=== PATIENT | female | born 1950 | race Caucasian/White ===

== ENCOUNTER 2019-11-16 07:55 | Outpatient (CLI) | payer MEDICARE, SELFPAY ==
[2019-11-16 08:33] LABS: Hematocrit 38.9 % (37.0-47.0); Hemoglobin 11.9 g/dL (12.0-15.0); Mean Corpuscular HGB Conc 30.6 g/dl (32-36); Mean Corpuscular Hemoglobin 29.5 pg (26-34); Mean Corpuscular Volume 96.3 fl (80-100); Mean Platelet Volume 11.1 fl (7.4-10.4); Platelet Count Result 259 k/mm3 (150-375); Red Blood Count 4.04 M/mm3 (4.2-5.4); White Blood Count 5.2 K/mm3 (4.5-10.0)
[2019-11-16 08:45] LABS: Alanine Aminotransferase 16 U/L (4-35); Albumin Level 4.1 g/dL (3.5-5.1); Alkaline Phosphatase 100 U/L (38-126); Aspartate Amino Transferase 22 U/L (14-36); Bilirubin,Total 0.2 mg/dL (0.2-1.3); Blood Urea Nitrogen 24 mg/dL (7-17); Calcium 8.6 mg/dL (8.4-10.2); Carbon Dioxide 27 mmol/L (22-30); Chloride 105 mmol/L (98-107); Cholesterol 186 mg/dL (0-200); Estimated Glomerular Filt Rate 55; Glucose 98 mg/dL (65-105); HDL Direct 64 mg/dL; Potassium 4.4 mmol/L (3.4-5.0); Sodium 139 mmol/L (137-145); Triglycerides 173 mg/dL (<150)
[2019-11-16 08:56] LABS: LDL Cholesterol Direct 77 mg/dL
[2019-11-16 10:04] LABS: Vitamin D 25 Hydroxy 22.6 ng/mL
== END 2019-11-16 07:56 | disposition home or self-care (01) ==
PROVIDERS: PCP Family Medicine; Visit Provider Family Medicine
DX: R53.83 Other fatigue (principal); I10 Essential (primary) hypertension; E78.5 Hyperlipidemia, unspecified; E55.9 Vitamin D deficiency, unspecified
CPT/HCPCS: 36415; 80053; 80061; 82306; 84443; 85027

== ENCOUNTER 2019-12-02 00:27 | Day surgery (SDC) | payer MEDICARE, SELFPAY ==
[2019-08-25 14:24] VITALS: BMI 30.9
[2019-11-28 14:00] VITALS: BMI 30.9
[2019-12-02 09:20] VITALS: BP 141/65; PULSE 67; TEMP 37.1; BMI 30.7
[2019-12-02] MEDS: LACTATED RINGERS 1,000 ML 150 ML IV CONT (09:32)
--- NOTE | 2019-12-02 09:53 | PM.HPGS ---
History of Present Illness History of Present Illness Consent: Risks, benefits, and alternatives have been discussed and questions answered. Patient agrees to proceed with procedure. Chief complaint: Epigastric Pain Narrative: Fern Olea is a 69 year old female with recurrent epigastric pain, often related to meals. Ultrasound of the upper abdomen was negative. [facility] Past Medical History Medical History Anxiety Chronic low back pain Chronic neck pain Depression HLD (hyperlipidemia) Hypertension Normal colonoscopy Parkinsons disease Surgical History Surgical History H/O esophagogastroduodenoscopy H/O rotator cuff surgery Previous back surgery Family History Family History Sibling Family history of rheumatoid arthritis Family history of lupus erythematosus Other Carcinoma of colon Diabetes mellitus Family history of arthritis Family history of chronic obstructive pulmonary disease Hypertension Malignant neoplasm of prostate Social History Social History Smoking status: Former smoker Second hand tobacco smoke exposure: No Smoking end date: 07/27/13 Alcohol intake: never Meds Home Medications and Allergies Home Medications Medication Instructions Recorded Confirmed Type atorvastatin 10 mg tablet 10 mg PO DAILY #90 tablet 06/14/19 08/25/19 Rx pregabalin 50 mg capsule 50 mg PO .HS #30 cap 06/29/19 08/25/19 Rx diclofenac sodium 75 mg 75 mg PO BID #180 tablet 07/25/19 08/25/19 Rx tablet,delayed release alprazolam 0.5 mg tablet 0.5 mg PO DAILY 08/04/19 08/25/19 History budesonide 3 mg 9 mg PO DAILY each 08/04/19 08/25/19 History capsule,delayed,extended release carbidopa 25 mg-levodopa 100 mg 2 tablet PO TID tablet 08/04/19 08/25/19 History tablet venlafaxine 75 mg capsule,extended 75 mg PO DAILY 08/04/19 08/25/19 History release 24 hr zonisamide 50 mg capsule 50 mg PO DAILY 08/04/19 08/25/19 History melatonin 2.5 mg PO HS PRN 08/25/19 08/25/19 History primidone 50 mg PO BID 08/25/19 08/25/19 History lisinopril 20 mg tablet See Rx Instructions .ROUTE 10/20/19 11/28/19 Rx .COMPLEX #90 tablet Allergies Allergy/AdvReac Type Severity Reaction Status Date / Time adhesive Allergy Unknown Rash Verified 08/25/19 14:18 nickel Allergy Unknown Rash Verified 08/25/19 14:18 BUTORPHANOL TARTRATE Allergy Intermediate HALLUCINATI Uncoded 08/25/19 14:18 ONS Vital Signs Vital Signs - 24 hr 12/02/19 09:20 Temperature 37.1 C Pulse Rate 67 Blood Pressure 141/65 H Exam Const: General: alert Orientation/consciousness: patient oriented x3 Resp: Auscultation: clear to auscultation bilaterally Cardio: Rhythm: regular rhythm GI: GI Palp: Yes Soft to palpation and No Tenderness to palpation present (GI) Neuro: General: patient oriented x3 Assessment and Plan Assessment and plan (1) Epigastric pain: Code(s): R10.13 - Epigastric pain Status: Acute Assessment and Plan: EGD with possible biopsy or dilatation or cautery.
--- NOTE | 2019-12-02 09:54 | WPDANESEPPF ---
Anes - Initial Pre Proc Eval Procedure: Operation Date: 12/02/19 10:30 Proposed Procedures p Esophagogastroduodenoscopy - Joseph Collins MD Date/Time: 12/02/19 09:54 Surgeon: Joseph Collins MD Pre Op Diagnosis: Epigastric Pain Patient Data Age: 69 Gender: F Height: 5 ft 6 in Weight: 86.2 kg Last Vital Signs Temp 37.1 C 12/02/19 09:20 Pulse 67 12/02/19 09:20 BP 141/65 H 12/02/19 09:20 Allergies Allergy/AdvReac Type Severity Reaction Status Date / Time adhesive Allergy Unknown Rash Verified 08/25/19 14:18 nickel Allergy Unknown Rash Verified 08/25/19 14:18 BUTORPHANOL TARTRATE Allergy Intermediate HALLUCINATI Uncoded 08/25/19 14:18 ONS Home Medications Medication Instructions Recorded Confirmed Type atorvastatin 10 mg tablet 10 mg PO DAILY #90 tablet 06/14/19 08/25/19 Rx pregabalin 50 mg capsule 50 mg PO .HS #30 cap 06/29/19 08/25/19 Rx diclofenac sodium 75 mg 75 mg PO BID #180 tablet 07/25/19 08/25/19 Rx tablet,delayed release alprazolam 0.5 mg tablet 0.5 mg PO DAILY 08/04/19 08/25/19 History budesonide 3 mg 9 mg PO DAILY each 08/04/19 08/25/19 History capsule,delayed,extended release carbidopa 25 mg-levodopa 100 mg 2 tablet PO TID tablet 08/04/19 08/25/19 History tablet venlafaxine 75 mg capsule,extended 75 mg PO DAILY 08/04/19 08/25/19 History release 24 hr zonisamide 50 mg capsule 50 mg PO DAILY 08/04/19 08/25/19 History melatonin 2.5 mg PO HS PRN 08/25/19 08/25/19 History primidone 50 mg PO BID 08/25/19 08/25/19 History lisinopril 20 mg tablet See Rx Instructions .ROUTE 10/20/19 11/28/19 Rx .COMPLEX #90 tablet Patient hx anesthesia problems: none Family hx anesthesia problems: none PMFSH Past Medical History Medical History Anxiety Chronic low back pain Chronic neck pain Depression HLD (hyperlipidemia) Hypertension Normal colonoscopy Parkinsons disease Surgical History Surgical History H/O esophagogastroduodenoscopy H/O rotator cuff surgery Previous back surgery Family History Family History Sibling Family history of rheumatoid arthritis Family history of lupus erythematosus Other Carcinoma of colon Diabetes mellitus Family history of arthritis Family history of chronic obstructive pulmonary disease Hypertension Malignant neoplasm of prostate Social History Social History Smoking status: Former smoker Second hand tobacco smoke exposure: No Smoking end date: 07/27/13 Alcohol intake: never Anes - Eval Final PreProcedure Day of Procedure 12/02/19 09:54 Patient weight: obese Heart: regular rate and rhythm Lungs: clear to auscultation Airway: Mallampati scale class II and other (s/p ACD C3-4-5, good ROM) Neurological: alert and oriented Last oral intake: >/= 8 hours ASA classification: III Emergent: no Anesthetic plan: proceed Anesthesia type and monitoring: general GIVS and standard monitoring Informed Consent: The patient's anesthetic plan and its attendant risks and benefits were discussed with the patient/family/POA. Questions were solicited and answers provided to the satisfaction of the patient/family/POA.
[2019-12-02 10:34] VITALS: BP 117/42; PULSE 57; RESP 16; O2SAT 97
[2019-12-02 10:44] VITALS: BP 117/50; PULSE 53; RESP 19; O2SAT 97
[2019-12-02 10:53] VITALS: BP 125/50; PULSE 53; RESP 12; O2SAT 100
== END 2019-12-02 11:05 | disposition home or self-care (01) ==
PROVIDERS: PCP Family Medicine; Visit Provider Internal Medicine Gastroenterology
PROC: 0DJ08ZZ Inspection of Upper Intestinal Tract, Via Natural or Artificial Opening Endoscopic (ICD-10-PCS; CPT 43235; principal; 2019-12-02 10:30)
DX: K21.9 Gastro-esophageal reflux disease without esophagitis (principal); K29.70 Gastritis, unspecified, without bleeding; K29.80 Duodenitis without bleeding; I10 Essential (primary) hypertension; E78.5 Hyperlipidemia, unspecified; G89.29 Other chronic pain; M54.2 Cervicalgia; M54.9 Dorsalgia, unspecified; G20 Parkinson's disease; F41.9 Anxiety disorder, unspecified; E66.9 Obesity, unspecified; Z68.30 Body mass index [BMI] 30.0-30.9, adult
CPT/HCPCS: 43239; 87081; 88305; J2704; J7120

== ENCOUNTER 2020-01-09 20:43 | Outpatient (CLI) | payer MEDICARE, SELFPAY ==
--- NOTE | ~2020-01-09 | MR_ITS ---
EXAMINATION: MR thoracic spine wo con DATE: 01/09/2020 21:23 INDICATION: Thoracic radiculopathy. TECHNIQUE: Magnetic resonance imaging (MRI) of the thoracic spine was performed without intravenous c ontrast. Sagittal localizer T1-weighted FSE of the cervical spine was obtained. Thoracic spine sequen [place] included sagittal T2-weighted FSE, sagittal T1-weighted FSE, sagittal T2-weighted FS FSE, and axi al T2-weighted FSE. COMPARISON: Chest CT 02/14/2019, 12/08/2017 FINDINGS: There is 9 degrees dextrocurvature of thoracic spine. There are changes of anterior fusion procedure from C4 to C6. There are Schmorl's nodes at multiple levels. There is a sclerotic lesion in T8 vertebral body and left pedicle. There is mildly decreased disc height from T4-T5 through T6-T7, moderately decreased disc height at T7-T8, and mildly decreased disc height at T8-T9 and T9-T10. At T 6-T7, there is a central extrusion with mild central canal stenosis and ventral indentation of spinal cord. At T7-T8, there is a left central protrusion with mild central canal stenosis. At T8-T9, there is a left central extrusion with mild central canal stenosis. At T9-T10, there is a central protrusi on with mild central canal stenosis. There is multilevel facet joint osteoarthritis, mild at most lev els. There is severe facet joint osteoarthritis on the right at T9-T10 and on the left at T11-T12. On the right, there is mild neural foraminal stenosis at T9-T10 and T10-T11. On the left, there is mild neural foraminal stenosis at T10-T11 and T11-T12. The spinal cord signal intensity is normal. IMPRESSION: 1. Moderate thoracic spondylosis. 2. Sclerotic lesion in T8, stable from 12/08/2017, likely benign. Reviewed, dictated and finalized at location A.
== END 2020-01-09 20:44 | disposition home or self-care (01) ==
PROVIDERS: PCP Family Medicine; Visit Provider Physical Medicine & Rehabilitation Pain Medicine
DX: M47.814 Spondylosis without myelopathy or radiculopathy, thoracic region (principal); M89.9 Disorder of bone, unspecified
CPT/HCPCS: 72146

== ENCOUNTER 2020-09-17 07:43 | Outpatient (CLI) | payer MEDICARE, SELFPAY ==
[2020-09-17 08:03] LABS: Hematocrit 36.5 % (37.0-47.0); Hemoglobin 11.1 g/dL (12.0-15.0); Mean Corpuscular HGB Conc 30.4 g/dl (32-36); Mean Corpuscular Hemoglobin 28.9 pg (26-34); Mean Corpuscular Volume 95.1 fl (80-100); Mean Platelet Volume 11.5 fl (7.4-10.4); Platelet Count Result 234 k/mm3 (150-375); Red Blood Count 3.84 M/mm3 (4.2-5.4); Red Cell Distribution Width 14.1 % (11.5-14.5); White Blood Count 5.6 K/mm3 (4.5-10.0)
[2020-09-17 08:08] LABS: Hemoglobin A1C 5.2 % (<5.7)
[2020-09-17 08:17] LABS: Alanine Aminotransferase 13 U/L (4-35); Alkaline Phosphatase 100 U/L (38-126); Anion Gap 2 mmol/L (8-16); Aspartate Amino Transferase 23 U/L (14-36); Bilirubin,Total 0.2 mg/dL (0.2-1.3); Blood Urea Nitrogen 26 mg/dL (7-17); Calcium 8.6 mg/dL (8.4-10.2); Carbon Dioxide 29 mmol/L (22-30); Chloride 107 mmol/L (98-107); Cholesterol 190 mg/dL (0-200); Estimated Glomerular Filt Rate > 60; Glucose 98 mg/dL (65-105); HDL Direct 79 mg/dL; Potassium 4.4 mmol/L (3.4-5.0); Sodium 138 mmol/L (137-145); Triglycerides 158 mg/dL (<150)
[2020-09-17 08:28] LABS: LDL Cholesterol Direct 69 mg/dL
[2020-09-17 08:49] LABS: Vitamin D 25 Hydroxy 19.9 ng/mL
== END 2020-09-17 07:44 | disposition home or self-care (01) ==
PROVIDERS: PCP Family Medicine; Visit Provider Family Medicine
DX: E78.2 Mixed hyperlipidemia (principal); E11.9 Type 2 diabetes mellitus without complications; E55.9 Vitamin D deficiency, unspecified; R53.83 Other fatigue; I10 Essential (primary) hypertension
CPT/HCPCS: 36415; 80053; 80061; 82306; 83036; 84443; 85027

== ENCOUNTER 2020-11-12 15:04 | Outpatient (CLI) | payer MEDICARE, SELFPAY ==
--- NOTE | ~2020-11-12 | MR_ITS ---
EXAMINATION: MR shoulder LT wo con DATE: 11/12/2020 16:00 INDICATION: Left shoulder pain TECHNIQUE: Magnetic resonance imaging (MRI) of the left shoulder was performed without intravenous co ntrast. Sequences included axial PD-weighted FS FSE, coronal oblique PD-weighted FS FSE, coronal obli que T2-weighted FS FSE, sagittal PD-weighted FS FSE, and sagittal T1-weighted SE. COMPARISON: Shoulder radiographs dated 10/25/2020 FINDINGS: Coracoacromial arch: The acromion undersurface is minimally curved in morphology (type I-II). Small anterior subacromial s pur at the acromial attachment of the normal coracoacromial ligament. Mild acromioclavicular osteoart hritis. Rotator cuff: Mild supraspinatus and infraspinatus tendinopathy without discrete tear. The teres minor and subscapu nuno tendons are normal. Normal rotator cuff muscle bulk and signal. Biceps tendon, glenoid labrum and glenohumeral cartilage: Long head of the biceps tendon is normal. Mild to moderate nonuniform joint space narrowing with diff use partial thickness cartilage loss in places appearing to involve greater than 50% of the cartilage thickness but with smooth chondral surface and without degenerative subchondral changes. Small jamari nal osteophytes are seen along the posterior and inferior glenoid. The glenoid labrum appears small c onsistent with likely chronic degeneration but without a discrete labral tear. Fluid: Physiologic amount of fluid in the glenohumeral joint and biceps tendon sheath. No loose osteochondra l bodies. Small amount of fluid in the subacromial/subdeltoid bursa consistent with mild bursitis. Bones: Normal marrow signal with no edema, fracture or pathologic marrow replacing process. IMPRESSION: 1. Mild to moderate glenohumeral osteoarthritis with diffuse low to moderate grade chondromalacia and likely chronic degeneration of the glenoid labrum which appears small but without a discrete well-de fined labral tear. 2. Mild supraspinatus and infraspinatus tendinopathy without discrete tear. 3. Mild acromioclavicular osteoarthritis. 4. Mild subacromial/subdeltoid bursitis. Reviewed, dictated and finalized at location A. IMPRESSION: 1. Mild to moderate glenohumeral osteoarthritis with diffuse low to moderate gr zaria chondromalacia and likely chronic degeneration of the glenoid labrum which appears small but without a discrete well-defined labral tear. 2. Mild supraspinatus and infraspinatus tendinopathy without discrete tear. 3. Mild acromioclavicular osteoarthritis. 4. Mild subacromial/subdeltoid bursitis.
== END 2020-11-12 15:05 | disposition home or self-care (01) ==
PROVIDERS: PCP Family Medicine; Visit Provider Orthopaedic Surgery
DX: M19.012 Primary osteoarthritis, left shoulder (principal); M75.52 Bursitis of left shoulder
CPT/HCPCS: 73221

== ENCOUNTER 2020-11-27 10:58 | Outpatient (CLI) | payer MEDICARE, SELFPAY ==
[2020-11-27 11:32] LABS: Hematocrit 40.5 % (37.0-47.0); Hemoglobin 12.4 g/dL (12.0-15.0); Immature Reticulocyte Fraction 9.2 % (3.0-15.9); Mean Corpuscular HGB Conc 30.6 g/dl (32-36); Mean Corpuscular Hemoglobin 28.4 pg (26-34); Mean Corpuscular Volume 92.9 fl (80-100); Mean Platelet Volume 11.5 fl (7.4-10.4); Platelet Count Result 267 k/mm3 (150-375); Red Blood Count 4.36 M/mm3 (4.2-5.4); Red Cell Distribution Width 15.6 % (11.5-14.5); Reticulocyte Hemoglobin Conten 34.1 pg (28.2-35.7); Reticulocyte Percent 1.76 % (0.7-4.3); Reticulocytes Absolute 0.08 B/L (32.2-175.7); White Blood Count 8.2 K/mm3 (4.5-10.0)
[2020-11-27 12:10] LABS: Iron 70 ug/dL (37-170)
[2020-11-27 12:19] LABS: Percent Iron Saturation 22 % (20-50)
[2020-11-27 12:26] LABS: Vitamin D 25 Hydroxy 19.1 ng/mL
[2020-11-27 13:40] LABS: Folic Acid > 20.0 ng/mL (2.76->20)
[2020-11-27 13:59] LABS: Hepatitis C Virus Antibody Negative (Negative)
== END 2020-11-27 10:59 | disposition home or self-care (01) ==
PROVIDERS: PCP Family Medicine; Visit Provider Family Medicine
DX: Z11.59 Encounter for screening for other viral diseases (principal); E55.9 Vitamin D deficiency, unspecified; D64.9 Anemia, unspecified
CPT/HCPCS: 36415; 82306; 82607; 82728; 82746; 83540; 83550; 85027; 85046; 86803

== ENCOUNTER 2021-03-15 08:37 | Outpatient (CLI) | payer MEDICARE, SELFPAY ==
[2021-03-15 09:11] LABS: Hematocrit 39.7 % (37.0-47.0); Hemoglobin 12.4 g/dL (12.0-15.0); Mean Corpuscular HGB Conc 31.2 g/dl (32-36); Mean Corpuscular Hemoglobin 29.9 pg (26-34); Mean Corpuscular Volume 95.7 fl (80-100); Platelet Count Result 230 k/mm3 (150-375); Red Blood Count 4.15 M/mm3 (4.2-5.4); Red Cell Distribution Width 14.4 % (11.5-14.5); White Blood Count 5.9 K/mm3 (4.5-10.0)
[2021-03-15 09:24] LABS: Hemoglobin A1C 5.9 % (<5.7)
[2021-03-15 09:26] LABS: Alanine Aminotransferase 7 U/L (4-35); Albumin Level 4.2 g/dL (3.5-5.1); Alkaline Phosphatase 98 U/L (38-126); Anion Gap 8 mmol/L (8-16); Aspartate Amino Transferase 18 U/L (14-36); Bilirubin,Total 0.3 mg/dL (0.2-1.3); Blood Urea Nitrogen 24 mg/dL (7-17); Calcium 8.7 mg/dL (8.4-10.2); Carbon Dioxide 22 mmol/L (22-30); Chloride 108 mmol/L (98-107); Cholesterol 201 mg/dL (0-200); Estimated Glomerular Filt Rate > 60; Glucose 111 mg/dL (65-110); HDL Direct 83 mg/dL; Potassium 4.6 mmol/L (3.4-5.0); Sodium 138 mmol/L (137-145); Triglycerides 170 mg/dL (<150)
[2021-03-15 09:37] LABS: LDL Cholesterol Direct 69 mg/dL
[2021-03-15 09:41] LABS: Vitamin D 25 Hydroxy 44.6 ng/mL
== END 2021-03-15 08:38 | disposition home or self-care (01) ==
LOC: ANHLAB 08:41
PROVIDERS: Visit Provider Family Medicine
DX: E78.2 Mixed hyperlipidemia (principal); R53.83 Other fatigue; E11.9 Type 2 diabetes mellitus without complications; I10 Essential (primary) hypertension; E55.9 Vitamin D deficiency, unspecified
CPT/HCPCS: 36415; 80053; 80061; 82306; 83036; 84443; 85027

== ENCOUNTER 2021-03-25 15:20 | Outpatient (CLI) | payer MEDICARE, SELFPAY ==
--- NOTE | ~2021-03-25 | CT_ITS ---
EXAMINATION:CT lung screening DATE: 03/25/2021 15:38 INDICATION: Personal history of tobacco dependence. Smoker who quit 5 years ago with 40 pack year his tory. TECHNIQUE: Computed tomography (CT) of the chest was performed without intravenous contrast. Automate d exposure control and iterative reconstruction technique were employed. The dose-length product (DLP ) was 130.52 mGy-cm. COMPARISON: Chest CT 02/14/2019 FINDINGS: Calcified bilateral lung nodules and calcified left hilar and mediastinal lymph nodes are c onsistent with old granulomatous disease. There is mild emphysema. There is mild scarring at the lung apices. There are a few scattered nodules in the lungs measuring up to 3 mm. No pleural effusion. Th e heart size is normal. There are coronary artery calcifications. No pericardial effusion. There is a small sliding hiatal hernia. There are cysts in the liver measuring up to 18 mm. Calcifications in t he spleen are consistent with old granulomatous disease. There is moderate thoracic spondylosis. Ther e are changes of anterior fusion procedure in cervical spine. There is chronic sclerosis in T8 verteb ral body and left pedicle, likely benign. IMPRESSION: 1. Lung-RADS category 2: Benign appearance or behavior. Continue annual screening with noncontrast lo w-dose chest CT in 12 months. Reviewed, dictated and finalized at location A. IMPRESSION: 1. Lung-RADS category 2: Benign appearance or behavior. Continue annual screeni ng with noncontrast low-dose chest CT in 12 months.
== END 2021-03-25 15:21 | disposition home or self-care (01) ==
LOC: ANHIMG 15:25
PROVIDERS: PCP Family Medicine; Visit Provider Family Medicine
DX: Z12.2 Encounter for screening for malignant neoplasm of respiratory organs (principal); Z87.891 Personal history of nicotine dependence
CPT/HCPCS: 71271

== ENCOUNTER 2021-04-17 07:06 | Outpatient (CLI) | payer MEDICARE, SELFPAY ==
--- NOTE | ~2021-04-17 | CT_ITS ---
EXAMINATION: CT abdomen pelvis w con DATE: 04/17/2021 08:43 INDICATION: Abdominal pain TECHNIQUE: Computed tomography (CT) of the abdomen and pelvis was performed with 100 cc Omnipaque 350 intravenous contrast. The dose-length product was 828.24 mGy-cm. Automated exposure control and iter ative reconstruction technique were employed. COMPARISON: CT dated 07/18/2019 FINDINGS: Lung bases are unremarkable. Borderline heart size. No significant pleural or pericardial e ffusion. Mild diffuse atherosclerosis. No aneurysm. No lymphadenopathy. There are multiple liver cysts without significant change. The spleen contains calcified granulomas. The pancreas, right adrenal gland and right kidney are unremarkable. There is a small subcentimeter l eft adrenal myelolipoma. There are left renal cysts. Gallbladder is present. Nonobstructive bowel gas pattern. Colonic diverticula without evidence for diverticulitis. Moderate lumbar spondylosis. Mild levoscoliosis. No focal lytic or blastic lesions. No significant hydronephrosis. Bladder is decompres sed. No abnormal pelvic masses or fluid collections. No free air or free fluid. IMPRESSION: 1. No acute abdominal abnormality. Reviewed, dictated and finalized at location A.
[2021-04-17 08:35] LABS: Estimated Glomerular Filt Rate > 60
== END 2021-04-17 07:07 | disposition home or self-care (01) ==
LOC: ANHIMG 07:08
PROVIDERS: PCP Family Medicine; Visit Provider Internal Medicine Gastroenterology
DX: R10.9 Unspecified abdominal pain (principal)
CPT/HCPCS: 74177; Q9967

== ENCOUNTER → 2021-10-03 17:22 | Outpatient (CLI) | payer MEDICARE, SELFPAY ==
--- NOTE | ~2021-10-03 | MR_ITS ---
EXAMINATION: MR shoulder LT wo con DATE: 10/03/2021 17:57 INDICATION: Left shoulder pain TECHNIQUE: Magnetic resonance imaging (MRI) of the left shoulder was performed without intravenous co ntrast. Sequences included axial PD-weighted FS FSE, coronal oblique PD-weighted FS FSE, coronal obli que T2-weighted FS FSE, sagittal PD-weighted FS FSE, and sagittal T1-weighted SE. COMPARISON: 11/12/2020 FINDINGS: Coracoacromial arch: The acromion undersurface is minimally curved in morphology (type I-II). Small anterior subacromial s pur at the acromial attachment of the normal coracoacromial ligament. The coracoacromial ligament is normal. Mild acromioclavicular osteoarthritis. Rotator cuff: Mild supraspinatus and infraspinatus tendinopathy without discrete tear. The teres minor and subscapu nuno tendons are normal. Normal rotator cuff muscle bulk and signal. Biceps tendon, glenoid labrum and glenohumeral cartilage: Long head of the biceps tendon is normal. No significant change in mild to moderate nonuniform glenoh umeral joint space narrowing with diffuse partial thickness cartilage loss in places appearing to inv olve greater than 50% of the cartilage thickness but with smooth chondral surface and without degener ative subchondral changes. Small marginal osteophytes are seen along the posterior and inferior gleno id. The glenoid labrum appears small consistent with likely chronic degeneration but without a discre te labral tear. Fluid: Physiologic amount of fluid in the glenohumeral joint and biceps tendon sheath. No loose osteochondr al bodies. Small amount of fluid in the subacromial/subdeltoid bursa consistent with mild bursitis. Bones: Normal marrow signal with no edema, fracture or pathologic marrow replacing process. IMPRESSION: 1. No significant change in mild to moderate glenohumeral osteoarthritis with likely chronic degenera tion at the glenoid labrum which is diffusely small but without a clearly defined labral tear. 2. Mild supraspinatus and infraspinatus tendinopathy without discrete tear. 2. Mild acromion clavicular osteoarthritis and mild underlying subacromial/subdeltoid bursitis. Reviewed, dictated and finalized at location A. [employer] IMPRESSION: 1. No significant change in mild to moderate glenohumeral osteoarthritis with l ikely chronic degeneration at the glenoid labrum which is diffusely small but w ithout a clearly defined labral tear. 2. Mild supraspinatus and infraspinatus tendinopathy without discrete tear. 2. Mild acromion clavicular osteoarthritis and mild underlying subacromial/subd eltoid bursitis.
== END ==
PROVIDERS: PCP Family Medicine; Visit Provider Orthopaedic Surgery
DX: M25.512 Pain in left shoulder (principal); M19.012 Primary osteoarthritis, left shoulder; M75.82 Other shoulder lesions, left shoulder; M75.52 Bursitis of left shoulder
CPT/HCPCS: 73221

== ENCOUNTER 2021-11-03 12:28 | Emergency (ER) | payer MEDICARE, SELFPAY ==
--- NOTE | 2021-11-03 12:31 | ED.URI ---
HPI - URI/Sore Throat General Chief Complaint: Upper Respiratory Infection Stated Complaint: Sore Throat,Headache,Rt Ear Irritation,Body Aches Time Seen by Provider: 11/03/21 12:32 Source: patient Mode of arrival: ambulatory Limitations: no limitations History of Present Illness HPI Narrative: Ms. Olea is a 70-year-old female patient presenting to the clinic today with complaints of low-grade temp, sore throat, headache, right-sided back pain, ear irritation, and body aches times 1 week. 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 She has no known exposure to anybody with Covid, influenza, or strep. Just began having low grade temperature last night. States she feels lousy . MD elicited complaint: sore throat and nasal congestion Related Data Home Medications Medication Instructions Recorded Confirmed alprazolam 0.5 mg tablet 0.5 mg PO DAILY 08/04/19 10/21/21 zonisamide 50 mg capsule 50 mg PO DAILY 08/04/19 10/21/21 melatonin 2.5 mg chewable tablet 5 mg PO HS PRN tablet 11/27/20 10/21/21 primidone 50 mg tablet 150 mg PO BID tablet 11/27/20 10/21/21 loperamide 2 mg tablet 2 mg PO DAILY PRN tablet 02/19/21 10/21/21 carbidopa 25 mg-levodopa 100 mg 0.25 tablet PO ONCE tablet 08/20/21 10/21/21 tablet carbidopa 25 mg-levodopa 100 mg 2 tablet PO BID tablet 08/20/21 10/21/21 tablet carbidopa ER 50 mg-levodopa 200 mg 1 tablet PO QHS 08/20/21 10/21/21 tablet,extended release venlafaxine 75 mg capsule,extended 75 mg PO TID cap 10/30/21 release 24 hr Allergies Allergy/AdvReac Type Severity Reaction Status Date / Time butorphanol [From Stadol] Allergy Severe hallucinati Verified 11/03/21 12:41 ons adhesive Allergy Unknown Rash Verified 11/03/21 12:41 nickel Allergy Unknown Rash Verified 11/03/21 12:41 [email or web address] Allergy Swelling Uncoded 11/03/21 12:41 Review of Systems Review of Systems: Pertinent positives per HPI. Patient denies any rash, visual changes, dizziness, shortness of breath, chest pain, palpitations, nausea, vomiting, diarrhea, constipation, abdominal pain, or any urinary issues. [facility] Past Medical History Medical History Abdominal pain Anxiety Arthritis Chronic headaches Chronic left hip pain Chronic low back pain Chronic neck pain Collagenous colitis Depression Diarrhea Dupuytren's contracture of both hands Eczema Gastritis HLD (hyperlipidemia) Hypertension Microscopic colitis Normal colonoscopy Parkinsons disease Vertigo Vitamin D deficiency Weight gain Surgical History Surgical History H/O esophagogastroduodenoscopy H/O rotator cuff surgery History of x2 Previous back surgery Family History Family History Sibling Family history of rheumatoid arthritis Family history of lupus erythematosus Other Carcinoma of colon Depression Diabetes mellitus Family history of arthritis Family history of chronic obstructive pulmonary disease Heart disease High cholesterol Hypertension Malignant neoplasm of prostate Social History Social History Smoking packs per day: 1 Smoking cigarettes per day: 20.0 Years smoked: 40 Smoking pack-years: 40.00 Second hand tobacco smoke exposure: No Smoking end date: 10/26/15 Alcohol intake: never Substance use: never Substance use type: does not use Comments At the time of my signature, I reviewed and agree with the nursing past medical, surgical, social, and family history. There is no relevant family history pertinent to the patient complaint. Exam Narrative: General: Well-developed, well nourished, in no apparent distress Head: Normocephalic, atraumatic Eyes: Pupils equally round and reactive to light bilaterally, EOM intact, sclera and conjunc
[2021-11-03 12:36] VITALS: BP 133/61; PULSE 72; RESP 16; TEMP 37.1; O2SAT 98
== END 2021-11-03 13:37 | disposition home or self-care (01) ==
PROVIDERS: Emergency Provider Nurse Practitioner Family; PCP Family Medicine
DX: B34.9 Viral infection, unspecified (principal); Z20.822 Contact with and (suspected) exposure to COVID-19; Z87.891 Personal history of nicotine dependence; M19.90 Unspecified osteoarthritis, unspecified site; E78.5 Hyperlipidemia, unspecified; I10 Essential (primary) hypertension; G20 Parkinson's disease; F41.9 Anxiety disorder, unspecified; F32.A Depression, unspecified
CPT/HCPCS: 81003; 87081; 87426; 87804; 87880; 99213; C9803; G0463

== ENCOUNTER 2021-11-11 11:10 | Emergency (ER) | payer MEDICARE, SELFPAY ==
--- NOTE | ~2021-11-11 | XR_ITS ---
EXAMINATION: XR chest 2V DATE: 11/11/2021 11:44 INDICATION: Shortness of breath, cough and chest pain TECHNIQUE: PA and lateral views of the chest were obtained. COMPARISON: Chest CT dated 03/25/2021 FINDINGS: The lungs are clear with no focal airspace opacities, pulmonary edema, pleural effusion or pneumothor ax. The cardiomediastinal silhouette is normal. Mild thoracic dextrocurvature with moderate spondylos is. Incompletely visualized multilevel lower cervical anterior spinal fusion with interbody fusion de vices and anterior plate-screw fixation. IMPRESSION: 1. No acute cardiopulmonary disease. Reviewed, dictated and finalized at location A.
--- NOTE | 2021-11-11 11:16 | ED.URI ---
HPI - URI/Sore Throat General Chief Complaint: Upper Respiratory Infection Stated Complaint: congestion,cough,bilateral rib pain Time Seen by Provider: 11/11/21 11:59 Source: patient and RN notes reviewed Mode of arrival: ambulatory Limitations: no limitations History of Present Illness HPI Narrative: 70-year-old female presents with concern for 12-day history of sinus congestion, pressure, pain, cough, bilateral rib pain with coughing. Reports she was seen here 8 days ago. Reports she has been taking several [id number] remedies without relief. She reports symptoms seem to be worsening. She denies fever, body aches. Reports general malaise. MD elicited complaint: cough and sore throat Related Data Home Medications Medication Instructions Recorded Confirmed alprazolam 0.5 mg tablet 0.5 mg PO DAILY 08/04/19 11/11/21 zonisamide 50 mg capsule 50 mg PO DAILY 08/04/19 11/11/21 melatonin 2.5 mg chewable tablet 5 mg PO HS PRN tablet 11/27/20 11/11/21 primidone 50 mg tablet 150 mg PO BID tablet 11/27/20 11/11/21 loperamide 2 mg tablet 2 mg PO DAILY PRN tablet 02/19/21 11/11/21 carbidopa 25 mg-levodopa 100 mg 0.25 tablet PO ONCE tablet 08/20/21 11/11/21 tablet carbidopa 25 mg-levodopa 100 mg 2 tablet PO BID tablet 08/20/21 11/11/21 tablet carbidopa ER 50 mg-levodopa 200 mg 1 tablet PO QHS 08/20/21 11/11/21 tablet,extended release venlafaxine 75 mg capsule,extended 150 mg PO DAILY cap 10/30/21 11/11/21 release 24 hr Allergies Allergy/AdvReac Type Severity Reaction Status Date / Time butorphanol [From Stadol] Allergy Severe hallucinati Verified 11/11/21 11:45 ons adhesive Allergy Unknown Rash Verified 11/11/21 11:45 nickel Allergy Unknown Rash Verified 11/11/21 11:45 [email or web address] Allergy Swelling Uncoded 11/11/21 11:45 Review of Systems Review of Systems: CONSTITUTIONAL: Reports malaise. Denies chills, sweats, or fever. EYES: Denies visual changes, redness, or discharge. ENT: Reports rhinorrhea, congestion, sinus pain, otalgia and sore throat. CARDIOVASCULAR: Denies chest pain, palpitations, or edema. RESPIRATORY: Reports cough, chest congestion, chest pain with coughing. Denies dyspnea. GASTROINTESTINAL: Denies abdominal pain, nausea, vomiting, diarrhea SKIN: Denies rash or itching. MUSCULOSKELETAL: Denies myalgia. NEUROLOGIC: Denies headache. All systems reviewed & are unremarkable except as noted in HPI and below PMFSH Past Medical History Medical History Abdominal pain Anxiety Arthritis Chronic headaches Chronic left hip pain Chronic low back pain Chronic neck pain Collagenous colitis Depression Diarrhea Dupuytren's contracture of both hands Eczema Gastritis HLD (hyperlipidemia) Hypertension Microscopic colitis Normal colonoscopy Parkinsons disease Vertigo Vitamin D deficiency Weight gain Surgical History Surgical History H/O esophagogastroduodenoscopy H/O rotator cuff surgery History of x2 Previous back surgery Family History Family History Sibling Family history of rheumatoid arthritis Family history of lupus erythematosus Other Carcinoma of colon Depression Diabetes mellitus Family history of arthritis Family history of chronic obstructive pulmonary disease Heart disease High cholesterol Hypertension Malignant neoplasm of prostate Social History Social History Smoking packs per day: 1 Smoking cigarettes per day: 20.0 Years smoked: 40 Smoking pack-years: 40.00 Second hand tobacco smoke exposure: No Smoking end date: 10/26/15 Alcohol intake: never Substance use: never Substance use type: does not use Comments At time of signature, agree with nursing past medical, surgical, social an
[2021-11-11 11:27] VITALS: BP 132/87; PULSE 75; RESP 20; TEMP 36.2; O2SAT 98
== END 2021-11-11 12:16 | disposition home or self-care (01) ==
PROVIDERS: Emergency Provider Nurse Practitioner; PCP Family Medicine
DX: J32.9 Chronic sinusitis, unspecified (principal); J40 Bronchitis, not specified as acute or chronic; Z20.822 Contact with and (suspected) exposure to COVID-19; Z87.891 Personal history of nicotine dependence; M19.90 Unspecified osteoarthritis, unspecified site; E78.5 Hyperlipidemia, unspecified; I10 Essential (primary) hypertension; G20 Parkinson's disease; F41.9 Anxiety disorder, unspecified; F32.A Depression, unspecified; E55.9 Vitamin D deficiency, unspecified
CPT/HCPCS: 71046; 87081; 87426; 87804; 87880; 99213; C9803; G0463

== ENCOUNTER 2022-03-03 16:10 | Outpatient (CLI) | payer MEDICARE, SELFPAY ==
--- NOTE | ~2022-03-03 | CT_ITS ---
EXAMINATION: CT lung screening DATE: 03/03/2022 16:31 INDICATION: History of tobacco dependence TECHNIQUE: Computed tomography (CT) of the chest was performed without intravenous contrast. The dose -length product was 136.13 mGy-cm. Automated exposure control and iterative reconstruction technique were employed. COMPARISON: CT dated 03/25/2021 FINDINGS: Heart size normal. No thoracic lymphadenopathy. No significant pleural or pericardial effus ion. There is atherosclerosis of the aorta.. No evidence for aneurysm. There are multiple liver cysts . Small hiatal hernia. There is chronic sclerosis of T8 and the left pedicle, likely benign. There ar e calcified granulomas in both lungs. There are small pulmonary nodules measuring 3 mm or less which are not clearly calcified without significant change. There are surgical changes consistent with ante rior fusion of the cervical spine. No endobronchial lesions. No pneumothorax. No focal airspace conso lidation. Mild emphysema. IMPRESSION: 1. Lung-RADS category 2: Benign appearance or behavior. Continue annual screening with noncontrast lo w-dose chest CT in 12 months. Reviewed, dictated and finalized at location A. IMPRESSION: 1. Lung-RADS category 2: Benign appearance or behavior. Continue annual screeni ng with noncontrast low-dose chest CT in 12 months.
== END 2022-03-03 16:11 | disposition home or self-care (01) ==
PROVIDERS: PCP Family Medicine; Visit Provider Physician Assistant Medical
DX: Z12.2 Encounter for screening for malignant neoplasm of respiratory organs (principal); Z87.891 Personal history of nicotine dependence
CPT/HCPCS: 71271

== ENCOUNTER 2022-03-13 10:11 | Outpatient (CLI) | payer MEDICARE, SELFPAY ==
--- NOTE | 2022-04-07 11:36 | WPDSLEEPSTUD ---
Sleep Study Date of Study: 03/13/22 Ordering Provider: SALBADOR Bearden Interpreting Physician: Tiffany Giron DO Sleep Study Type: Split Polysomnogram Height: 1.68 m Weight: 94.347 kg Body Mass Index: 33.5 Neck Circumference (inches): 16.5 [place]: 11 Reason for Sleep Study Daytime hypersomnia Sleep History The patient is a 71-year-old female with Parkinson's disease, anxiety, chronic headaches, depression, hypertension, hyperlipidemia and history of tobacco use that had a sleep study ordered by her primary care for evaluation of sleep apnea. *The patient did not fill out the sleep intake forms* [facility] Past Medical History Medical History Abdominal pain Anxiety Arthritis Chronic headaches Chronic left hip pain Chronic low back pain Chronic neck pain Collagenous colitis Depression Diarrhea Dupuytren's contracture of both hands Eczema Gastritis HLD (hyperlipidemia) Hypertension Microscopic colitis Normal colonoscopy Parkinsons disease Vertigo Vitamin D deficiency Weight gain Surgical History Surgical History H/O esophagogastroduodenoscopy H/O rotator cuff surgery History of x2 Previous back surgery Family History Family History Sibling Family history of rheumatoid arthritis Family history of lupus erythematosus Sibling Psoriatic arthritis Other Carcinoma of colon Depression Diabetes mellitus Family history of arthritis Family history of chronic obstructive pulmonary disease Heart disease High cholesterol Hypertension Malignant neoplasm of prostate Social History Social History Smoking packs per day: 1 Smoking cigarettes per day: 20.0 Years smoked: 40 Smoking pack-years: 40.00 Smoking status: Former smoker Second hand tobacco smoke exposure: No Smoking end date: 10/26/15 Alcohol intake: never Substance use: never Substance use type: does not use Medications Home Medications Medication Instructions Recorded Confirmed Type zonisamide 50 mg capsule 50 mg PO DAILY 08/04/19 11/11/21 History melatonin 2.5 mg chewable tablet 5 mg PO HS PRN Insomnia 11/27/20 11/11/21 History primidone 50 mg tablet 150 mg PO BID 11/27/20 11/11/21 History loperamide 2 mg tablet 2 mg PO DAILY PRN Diarrhea 02/19/21 11/11/21 History (Anti-Diarrheal (loperamide)) albuterol sulfate 90 mcg/actuation 1 puff inhalation Q4H PRN 06/24/21 11/11/21 Rx aerosol inhaler shortness of breath or wheezing #8.5 grams atorvastatin 10 mg tablet 10 mg PO DAILY #90 tabs 06/24/21 11/11/21 Rx carbidopa 25 mg-levodopa 100 mg 2 tablet PO BID 08/20/21 11/11/21 History tablet carbidopa ER 50 mg-levodopa 200 mg 1 tablet PO QHS 08/20/21 11/11/21 History tablet,extended release ergocalciferol (vitamin D2) 1,250 1,250 mcg PO WEEKLY #12 caps 08/22/21 11/11/21 Rx mcg (50,000 unit) capsule venlafaxine 75 mg capsule,extended 150 mg PO DAILY 10/30/21 11/11/21 History release 24 hr budesonide 3 mg See Rx Instructions .Route 11/11/21 Rx capsule,delayed,extended release .COMPLEX #270 caps lisinopril 20 mg tablet See Rx Instructions .Route 11/21/21 Rx .COMPLEX #90 tabs celecoxib 200 mg capsule 200 mg PO DAILY #30 caps 02/19/22 Rx mirtazapine 7.5 mg tablet 7.5 mg PO QHS #30 tabs 02/26/22 02/26/22 Rx cyclobenzaprine 10 mg tablet 10 mg PO TID PRN muscle spasm #60 04/02/22 Rx tabs Sleep Procedure This test was performed using the [employer] SleepWorks multiple channel system including EOG, EEG, submental EMG, EKG, nasal and oral airflow using thermistors and nasal pressure sensors, chest and abdominal belts for body position data, and pulse oximetry. Video monitoring was also performed. The study was scored using CMS guidelines. Sleep Ar
[2022-04-08 14:37] VITALS: BMI 33.5
--- NOTE | 2022-08-08 08:47 | SLEEP ---
pt hasnt been using the last couple nights. he is adjusting humidification and returning to usage.
== END 2022-03-14 07:15 | disposition home or self-care (01) ==
LOC: ANHCSM 10:12
PROVIDERS: PCP Family Medicine; Visit Provider Physician Assistant Medical
DX: G47.33 Obstructive sleep apnea (adult) (pediatric) (principal); R53.83 Other fatigue; G20 Parkinson's disease; R51.9 Headache, unspecified
CPT/HCPCS: 95811

== ENCOUNTER 2022-06-26 10:25 | Outpatient (CLI) | payer MEDICARE, SELFPAY ==
--- NOTE | ~2022-06-26 | XR_ITS ---
EXAMINATION: XR ribs BI 3V w CXR 2V INDICATION: Cough, rib pain TECHNIQUE: Frontal and lateral views of the chest and 3 views of the bilateral ribs were obtained. COMPARISON: 11/11/2021 FINDINGS: The lungs are free of acute opacities. No pleural effusion or pneumothorax. The cardiomedia stinal silhouette is normal. No displaced rib fracture is identified. Changes of anterior fusion are noted in the lower cervical spine. There is moderate thoracic spondylosis. IMPRESSION: 1. No acute cardiopulmonary abnormality or evidence of displaced rib fracture. Reviewed, dictated and finalized at location A. WEB DEVELOPER
== END 2022-06-26 10:26 | disposition home or self-care (01) ==
PROVIDERS: PCP Family Medicine; Visit Provider Physician Assistant
DX: R05.9 Cough, unspecified (principal)
CPT/HCPCS: 71046; 71110

== ENCOUNTER 2022-07-11 10:58 | Emergency (ER) | payer MEDICARE, SELFPAY ==
--- NOTE | ~2022-07-11 | CT_ITS ---
EXAMINATION: CT brain wo con INDICATION: Headache and hypertension COMPARISON: None TECHNIQUE: Standard unenhanced head CT. The dose-length product (DLP) was 605.33 mGy-cm. The mA was a djusted according to patient size. Iterative reconstruction technique was employed. FINDINGS: There is no acute intraparenchymal hemorrhage. No evidence of mass lesion. No evidence of a cute infarction. There is mild periventricular and subcortical hypodensity probably related to small vessel ischemic disease. There is mild prominence of the sulci and ventricles related to cerebral atr ophy. Intracranial calcified cerebral atherosclerosis is noted. There are no extra-axial collections. There is no mass effect or midline shift. The orbits and soft tissues are unremarkable. There is mil d mucosal thickening of the paranasal sinuses. IMPRESSION: 1. No acute intracranial abnormality. 2. Age related findings. Reviewed, dictated and finalized at location A. INE PULLER OVER
[2022-07-11 11:45] VITALS: BP 185/64; PULSE 60; RESP 18; TEMP 36.6; O2SAT 99
--- NOTE | 2022-07-11 14:38 | ECG_ITS ---
Measurements Intervals [place] Rate: 47 P: 63 [place]: 162 QRS: 3 QRSD: 92 T: 33 QT: 466 QTc: 414 Interpretive Statements REDUCED EKG QUALITY BECAUSE OF BASELINE MOTION ARTIFACT SINUS BRADYCARDIA ABNORMAL ECG MINIMAL ST DEPRESSION [0.025+ mV ST DEPRESSION] NO PREVIOUS ECG AVAILABLE FOR COMPARISON Electronically Signed On 07-11-2022 16:46:53 WEATHER OBSERVER by Justin Álvarez M.D.
--- NOTE | 2022-07-11 14:49 | ED.RECABL ---
HPI - Recheck/Abnormal Lab/Rx General Chief Complaint: Recheck/Abnormal Lab/Rx Stated Complaint: high bp Time Seen by Provider: 07/11/22 14:16 History of Present Illness HPI narrative: Patient is a 71-year-old female with history of Parkinson's disease here for evaluation of elevated blood pressures and a frontal headache. Patient states that she has had a frontal headache for the past several months. States that it is throbbing in nature, intermittent, came on while she was at rest and it developed gradually. Does have history of headaches but this feels different. She made an appointment with her primary care doctor and was referred to the ED due to elevated blood pressures at 202/78. Denies chest pain, shortness of breath, fevers or chills, visual changes, nausea or vomiting, head trauma or blood thinner use. Related Data Home Medications Medication Instructions Recorded Confirmed zonisamide 50 mg capsule 50 mg PO DAILY 08/04/19 11/11/21 melatonin 2.5 mg chewable tablet 5 mg PO HS PRN Insomnia 11/27/20 11/11/21 primidone 50 mg tablet 150 mg PO BID 11/27/20 11/11/21 loperamide 2 mg tablet 2 mg PO DAILY PRN Diarrhea 02/19/21 11/11/21 (Anti-Diarrheal (loperamide)) carbidopa 25 mg-levodopa 100 mg 2 tablet PO BID 08/20/21 11/11/21 tablet carbidopa ER 50 mg-levodopa 200 mg 1 tablet PO QHS 08/20/21 11/11/21 tablet,extended release venlafaxine 75 mg capsule,extended 150 mg PO DAILY 10/30/21 11/11/21 release 24 hr propranolol 10 mg tablet 180 mg PO Q12H 07/10/22 Allergies Allergy/AdvReac Type Severity Reaction Status Date / Time butorphanol [From Stadol] Allergy Severe hallucinati Verified 02/26/22 14:02 ons adhesive Allergy Unknown Rash Verified 02/26/22 14:02 nickel Allergy Unknown Rash Verified 02/26/22 14:02 [email or web address] Allergy Swelling Uncoded 02/26/22 14:02 Review of Systems Review of Systems: Gen: Denies fevers or chills Eyes: Denies eye pain or visual change ENT: Denies congestion Respiratory: Denies shortness of breath or cough CV: Denies chest pain or palpitations GI: Denies abdominal pain nausea, emesis or diarrhea denies burning, urgency, frequency or hematuria Musculoskeletal: Denies back pain or muscle pain Neuro: Reports headaches. Denies numbness, tingling, weakness or focal weakness Skin: Denies rash Except as documented, all other systems reviewed and negative [facility] Past Medical History Medical History Abdominal pain Anxiety Arthritis Chronic headaches Chronic left hip pain Chronic low back pain Chronic neck pain Collagenous colitis Depression Diarrhea Dupuytren's contracture of both hands Eczema Gastritis HLD (hyperlipidemia) Hypertension Microscopic colitis Normal colonoscopy Parkinsons disease Vertigo Vitamin D deficiency Weight gain Surgical History Surgical History H/O esophagogastroduodenoscopy H/O rotator cuff surgery History of x2 Previous back surgery Family History Family History Sibling Family history of rheumatoid arthritis Family history of lupus erythematosus Sibling Psoriatic arthritis Other Carcinoma of colon Depression Diabetes mellitus Family history of arthritis Family history of chronic obstructive pulmonary disease Heart disease High cholesterol Hypertension Malignant neoplasm of prostate Social History Social History Smoking packs per day: 1 Smoking cigarettes per day: 20.0 Years smoked: 40 Smoking pack-years: 40.00 Smoking status: Former smoker Second hand tobacco smoke exposure: No Smoking end date: 10/26/15 Alcohol intake: never Substance use: never Substance use type: does not use Exam Narrative: APPEARANCE: Well appearing, no pain in distress
[2022-07-11 14:54] LABS: Basophils Absolute Auto 0.1 K/mm3 (0.0-0.1); Basophils Percent Auto 0.5 % (0.2-1.2); Eosinophils Absolute Auto 0.1 K/mm3 (0-0.3); Eosinophils Percent Auto 0.7 % (0-4.4); Hematocrit 41.4 % (37.0-47.0); Immature Granulocyte Absolute 0.06 K/mm3 (0.00-0.031); Immature Granulocyte Percent A 0.6 % (0-0.5); Lymphocytes Percent Auto 16.1 % (18.3-44.2); Mean Corpuscular HGB Conc 31.4 g/dl (32-36); Mean Corpuscular Hemoglobin 30.2 pg (26-34); Mean Corpuscular Volume 96.3 fl (80-100); Mean Platelet Volume 10.6 fl (7.4-10.4); Monocytes Absolute Auto 0.5 K/mm3 (0.1-0.6); Monocytes Percent Auto 4.5 % (2.6-8.5); Neutrophils Absolute Auto 8.2 K/mm3 (1.3-6.7); Neutrophils Percent Auto 77.6 % (45.5-73.1); Platelet Count Result 270 k/mm3 (150-375); White Blood Count 10.5 K/mm3 (4.5-10.0)
[2022-07-11 15:05] LABS: Alanine Aminotransferase 8 U/L (6-35); Albumin Level 4.3 g/dL (3.5-5.1); Alkaline Phosphatase 83 U/L (38-126); Anion Gap 4 mmol/L (8-16); Aspartate Amino Transferase 19 U/L (14-36); Bilirubin,Total 0.4 mg/dL (0.2-1.3); Blood Urea Nitrogen 23 mg/dL (7-17); Calcium 8.9 mg/dL (8.4-10.2); Carbon Dioxide 30 mmol/L (22-30); Chloride 102 mmol/L (98-107); Estimated CRCL calculation 65 ml/min; Estimated Glomerular Filt Rate > 60; Glucose 121 mg/dL (65-110); Potassium 4.4 mmol/L (3.4-5.0); Sodium 136 mmol/L (137-145)
[2022-07-11 15:16] LABS: Troponin I < 0.012 ng/mL (0.000-0.034)
[2022-07-11 16:20] LABS: Bacteria Urine Trace /hpf; Mucus Urine Few /lpf; RBC Urine 0-2 /hpf (0-2); Squamous Epithelial Cell Urine Rare /hpf (Few); WBC Urine 0-3 /hpf
[2022-07-11 16:22] LABS: Add Urine Microscopic? YES; Appearance Urine Clear (Clear); Bilirubin Urine Negative (Negative); Blood Urine Negative (Negative); Color Urine Yellow (Yellow); Glucose Urine UA Negative (Negative); Ketones Urine 1+ mg/dL (Negative); Leukocyte Esterase Ur Negative LEU/UL (Negative); Nitrate Urine Negative (Negative); Protein Urine Negative (Negative); Urobilinogen Urine 0.2 mg/dL (<2.0); pH Urine 6.5 (5.0-9.0)
[2022-07-11] MEDS: LORazepam (*CRX) 0.5 MG TABLET 0.25 MG PO (16:31)
[2022-07-11 16:58] VITALS: BP 150/68
== END 2022-07-11 17:15 | disposition home or self-care (01) ==
PROVIDERS: Emergency Provider Physician Assistant; PCP Family Medicine
DX: I10 Essential (primary) hypertension (principal); G20 Parkinson's disease; E78.5 Hyperlipidemia, unspecified; M72.0 Palmar fascial fibromatosis [Dupuytren]; E55.9 Vitamin D deficiency, unspecified; M19.90 Unspecified osteoarthritis, unspecified site; Z87.891 Personal history of nicotine dependence; R00.1 Bradycardia, unspecified
CPT/HCPCS: 36415; 70450; 80053; 81001; 84484; 85025; 93005; 99284; A9270; J3475

== ENCOUNTER 2022-08-08 09:10 | Outpatient (CLI) | payer MEDICARE, SELFPAY ==
--- NOTE | ~2022-08-08 | CT_ITS ---
EXAMINATION: CT abdomen pelvis wo con DATE: 08/08/2022 09:43 INDICATION: Abdominal pain TECHNIQUE: Computed tomography (CT) of the abdomen and pelvis was performed without intravenous contr ast. The dose-length product (DLP) was 1162.63 mGy-cm. Automated exposure control and iterative recon struction technique were employed. COMPARISON: 04/17/2021 FINDINGS: The lung bases are clear. The heart size is normal. Cysts of the liver measure up to 2.1 cm in the left hepatic lobe. Punctate calcifications in an otherwise normal spleen likely represent hea led granulomatous disease. The pancreas, gallbladder, and adrenal glands are normal. The right kidney is unremarkable. There is a 9 mm cyst of the left kidney. No pathologically enlarged abdominal or pe lvic lymph nodes are identified. There is no free intraperitoneal gas or evidence of bowel obstructio n. There is calcified atherosclerosis of the aorta and many of the other arteries. The appendix is no rmal. There is severe lumbar spondylosis. IMPRESSION: 1. No CT correlate for the patient's symptoms. Reviewed, dictated and finalized at location B. PMENT ASSOCIATE
== END 2022-08-08 09:11 | disposition home or self-care (01) ==
PROVIDERS: PCP Family Medicine; Visit Provider Physician Assistant Medical
DX: R10.9 Unspecified abdominal pain (principal)
CPT/HCPCS: 74176

== ENCOUNTER 2022-09-13 12:40 | Emergency (ER) | payer MEDICARE, SELFPAY ==
[2022-09-13 13:00] VITALS: BP 163/53; PULSE 59; RESP 18; TEMP 36.8; O2SAT 97
--- NOTE | 2022-09-13 13:00 | ED.URI ---
HPI - URI/Sore Throat General Chief Complaint: Upper Respiratory Infection Stated Complaint: sorethroat Time Seen by Provider: 09/13/22 13:00 Source: patient Mode of arrival: ambulatory Limitations: no limitations History of Present Illness HPI Narrative: Fern is a 71-year-old female patient presenting to the clinic today with complaints of sore throat x1 week. She also reports some nasal congestion, ear pain, and a nonproductive cough. She denies any visual changes, headache, or dizziness. States her grandchild was seen 2 weeks ago and tested positive for strep. She has taken at home COVID test earlier this week and was negative MD elicited complaint: sore throat and nasal congestion Related Data Home Medications Medication Instructions Recorded Confirmed zonisamide 50 mg capsule 50 mg PO DAILY 08/04/19 09/13/22 melatonin 2.5 mg chewable tablet 5 mg PO HS PRN Insomnia 11/27/20 09/13/22 loperamide 2 mg tablet 2 mg PO DAILY PRN Diarrhea 02/19/21 09/13/22 (Anti-Diarrheal (loperamide)) carbidopa ER 50 mg-levodopa 200 mg 1 tablet PO QHS 08/20/21 09/13/22 tablet,extended release carbidopa 25 mg-levodopa 100 mg 2 tablet PO TID 08/04/22 09/13/22 tablet propranolol 20 mg tablet 40 mg PO TID 08/04/22 09/13/22 Allergies Allergy/AdvReac Type Severity Reaction Status Date / Time butorphanol [From Stadol] Allergy Severe hallucinati Verified 09/13/22 13:06 ons adhesive Allergy Unknown Rash Verified 09/13/22 13:06 nickel Allergy Unknown Rash Verified 09/13/22 13:06 [email or web address] Allergy Swelling Uncoded 09/13/22 13:06 Review of Systems Review of Systems: Pertinent positives per HPI. Patient denies any fever, chills, rash, headache, visual changes, dizziness, shortness of breath, chest pain, palpitations, nausea, vomiting, diarrhea, constipation, abdominal pain, or any urinary issues. [facility] Past Medical History Medical History Anxiety Arthritis Chronic headaches Chronic low back pain Chronic neck pain Depression Diarrhea Dupuytren's contracture of both hands Eczema Encounter for HCV screening test for low risk patient HLD (hyperlipidemia) Hypertension Nipple lesion Normal colonoscopy Panic attack Parkinsons disease Renal cyst Tendinitis of left rotator cuff Vertigo Vitamin D deficiency Weight gain Surgical History Surgical History H/O esophagogastroduodenoscopy H/O rotator cuff surgery History of x2 Previous back surgery Family History Family History Sibling Family history of rheumatoid arthritis Family history of lupus erythematosus Sibling Psoriatic arthritis Other Carcinoma of colon Depression Diabetes mellitus Family history of arthritis Family history of chronic obstructive pulmonary disease Heart disease High cholesterol Hypertension Malignant neoplasm of prostate Social History Social History Smoking packs per day: 1 Smoking cigarettes per day: 20.0 Years smoked: 40 Smoking pack-years: 40.00 Smoking status: Former smoker Second hand tobacco smoke exposure: No Smoking end date: 10/26/15 Alcohol intake: never Substance use: never Substance use type: does not use Lack of Transportation: No Lack of Food: Never True Current Housing: I Have Housing Concerned About Future Housing: No Difficulty Paying Gas/Electric Bills: No Difficulty Paying for Meds: No Currently Unemployed: No Education: Bachelor's Degree Difficulty w/ Childcare or Family Care: No Comments At the time of my signature, I reviewed and agree with the nursing past medical, surgical, social, and family history. There is no relevant family history pertinent to the patient complaint. Exam Narrative: General: Well
== END 2022-09-13 13:28 | disposition home or self-care (01) ==
PROVIDERS: Emergency Provider Nurse Practitioner Family; PCP Family Medicine
DX: J06.9 Acute upper respiratory infection, unspecified (principal); B34.9 Viral infection, unspecified; H69.93 Unspecified Eustachian tube disorder, bilateral; J02.9 Acute pharyngitis, unspecified; Z87.891 Personal history of nicotine dependence; E78.5 Hyperlipidemia, unspecified; I10 Essential (primary) hypertension; E55.9 Vitamin D deficiency, unspecified; M19.90 Unspecified osteoarthritis, unspecified site; G20 Parkinson's disease; F41.9 Anxiety disorder, unspecified; F32.A Depression, unspecified; F41.0 Panic disorder [episodic paroxysmal anxiety]
CPT/HCPCS: 87081; 87880; 99213; G0463

== ENCOUNTER 2022-09-22 06:37 | Outpatient (CLI) | payer MEDICARE, SELFPAY ==
--- NOTE | ~2022-09-22 | CT_ITS ---
EXAMINATION: CT abdomen wo/w con DATE: 09/22/2022 07:22 INDICATION: Renal cysts. TECHNIQUE: Computed tomography (CT) of the abdomen and pelvis was performed without and with 100 cc O mnipaque 350 intravenous contrast. The dose-length product was 1098.38 mGy-cm. Automated exposure con trol and iterative reconstruction technique were employed. COMPARISON: CT dated 08/08/2022 FINDINGS: There is a 1 cm nonenhancing left renal cyst. There are multiple liver cysts, largest measu ring 1.8 cm. There are calcified granulomas of the spleen. Lung bases are unremarkable. No significant pleural or pericardial effusion. Gallbladder is present. The pancreas, adrenal glands and right kidney are unremarkable. No significant vascular abnormality. No lymphadenopathy. No free air or free fluid. IMPRESSION: 1. Liver and left renal cysts. Reviewed, dictated and finalized at location B. RALOGY TEACHER
[2022-09-22 07:15] LABS: Estimated Glomerular Filt Rate > 60
== END 2022-09-22 06:38 | disposition home or self-care (01) ==
PROVIDERS: PCP Family Medicine; Visit Provider Urology
DX: N28.1 Cyst of kidney, acquired (principal); K76.89 Other specified diseases of liver
CPT/HCPCS: 74170; Q9967

== ENCOUNTER 2022-10-22 08:08 | Outpatient (CLI) | payer MEDICARE, SELFPAY ==
--- NOTE | 2022-11-18 17:55 | WPDSLEEPSTUD ---
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 She does not awaken from sleep feeling short of breath. She frequently awakens at night with heartburn, belching or coughing. She frequently snores, rarely loudly enough that others complain. She constantly has trouble sleeping with a cold. She rarely wakes up gasping for breath at night. She occasionally has breathing problems at night observed by others. She constantly sweats excessively at night and notices her heart pounding or beating irregularly at night. She does not fall asleep during the day, does not fall asleep involuntarily or while driving. She does not have loss of muscle tone with strong emotion. She does not have daytime difficulties due to excessive sleepiness. She does not feel paralyzed on waking or falling asleep. She rarely has vivid dreamlike scenes on waking or falling asleep. She rarely feels afraid to go to sleep. She occasionally has nightmares. She frequently remembers her dreams. She occasionally has racing thoughts. She rarely feels sad, depressed or anxious. She rarely has muscular tension. She frequently notices parts of her body jerking. She always kicks at night, always has crawling and aching feelings in her legs and always has leg pain during the night. She occasionally has morning jaw pain. She rarely grinds her teeth during sleep. She constantly is bothered by pain during the day. She frequently is awakened by pain at night, frequently wakes up feeling stiff in the morning with sore achy muscles and pain in the neck and spine. She has headaches, fatigue and she takes antacids regularly. Her normal bedtime is 8:00 p.m. falling asleep within minutes, typically waking twice at night to urinate. She is able to return to sleep within 5-10 minutes. She wakes the morning at 4:00 a.m.. On weekends, bedtime is 9:00 p.m. and she wakes at 7:00 a.m.. She estimates getting 7-10 hours of sleep at night. She takes naps in the afternoon or evening. A short nap lasting 10 or 15 minutes is not refreshing. She is usually drowsy for 3 hours or longer after waking. She feels better in the afternoon or evening compared to the morning. Habits: Quit tobacco 8 years ago. Caffeine 8 oz of tea per day. No alcohol or recreational substances. [facility] Past Medical History Medical History Anxiety Arthritis Chronic headaches Chronic low back pain Chronic neck pain Depression Diarrhea Dupuytren's contracture of both hands Eczema Encounter for HCV screening test for low risk patient HLD (hyperlipidemia) Hypertension Nipple lesion Normal colonoscopy Panic attack Parkinsons disease Renal cyst Tendinitis of left rotator cuff Vertigo Vitamin D deficiency Weight gain Surgical History Surgical History H/O esophagogastroduodenoscopy H/O rotator cuff surgery History of x2 Previous back surgery Family History Family History Sibling Family history of rheumatoid arthritis Family history of lupus erythematosus Sibling Psoriatic arthritis Other Carcinoma of colon Depression Diabetes mellitus Family history of arthritis Family history of chronic obstructive pulmonary disease Heart disease High cholesterol Hypertension Malignant neoplasm of prostate Social History Social History Smoking packs per day: 1
[2022-11-18 20:25] VITALS: BMI 34.2
== END 2022-10-23 06:49 | disposition home or self-care (01) ==
LOC: ANHCSM 08:10
PROVIDERS: PCP Family Medicine; Visit Provider Physician Assistant
DX: G47.33 Obstructive sleep apnea (adult) (pediatric) (principal); G47.61 Periodic limb movement disorder; I10 Essential (primary) hypertension; E78.5 Hyperlipidemia, unspecified; G20 Parkinson's disease; Z87.891 Personal history of nicotine dependence
CPT/HCPCS: 95811

== ENCOUNTER 2022-11-24 09:40 | Outpatient (CLI) | payer MEDICARE, SELFPAY ==
--- NOTE | ~2022-11-24 | XR_ITS ---
EXAMINATION: XR barium swallow modified DATE: 11/24/2022 10:23 INDICATION: Chronic cough. TECHNIQUE: The patient was given barium-containing material of multiple consistencies to swallow by t nate speech pathologist while I performed fluoroscopy. Fluoroscopy exposure time was 1.2 minutes. The n umber of fluoroscopy images saved to the PACS was 1. Dose-area product was 0.823 Gy-cm^2. FINDINGS: There was trace laryngeal penetration with thin liquids via straw one time. No aspiration. IMPRESSION: 1. Single episode of trace laryngeal penetration. 2. Please refer to the speech therapy report for recommendations. Reviewed, dictated and finalized at location A.
--- NOTE | 2022-11-24 16:13 | REHSTMBS ---
Assessment and note entered by Magda May, GOLD NIB GRINDER Modified Barium Swallow Evaluation Feeding Type Recommended Oral Food Consistency Soft and Bite Size, Level Liquid Consistency Thin (0) Treatment Recommendations Effortful Swallow,Laryngeal Elevation Exerc, Lamar Maneuver,Tongue Base Exercise,Vocal Fold Adduction Exer ST Clinical Summary MODIFIED BARIUM SWALLOW STUDY Patient was seen for a Modified Barium Swallow study at the request of her physician. She has a history of Parkinson's disease with tremors in head/neck, and hands. Patient reported that she occasionally has difficulty swallowing at times, especially cold liquids and foods such as lettuce salads. Patient was presented with thin liquid contrast medium, pudding mixed with semi-solid mixture, and gurmeet cracker pieces and fruit both coated with the semi-solid mixture. Patient exhibited quick swallows with no evidence of penetration or aspiration except one brief moment where thin liquid per straw touched the top of the airway, clearing with the swallow. This was not replicated on subsequent swallows. Patient was instructed in the use of head flexion to facilitate improved swallowing. Patient may benefit from direct Speech Therapy for instruction in the use of swallowing strengthening exercises. This was explained to her and patient was in agreement. Please order Speech Therapy through [facility]. Thank you for this referral
== END 2022-11-24 09:41 | disposition home or self-care (01) ==
PROVIDERS: PCP Family Medicine; Visit Provider Family Medicine
DX: G20 Parkinson's disease (principal); R05.3 Chronic cough
CPT/HCPCS: 92611

== ENCOUNTER 2022-12-03 12:44 | Outpatient (RCR) | payer MEDICARE, SELFPAY ==
--- NOTE | 2022-12-03 16:52 | STOPEVAL1 ---
Assessment and note entered by Magda May, [employer] Evaluation Information Assessment Status Evaluation Diagnosis Dysphagia Onset Several year4s Subjective Information Patient reports that she has been using head flexion since her Modified Barium Swallow study and that it has been very helpful. She is conscious to take small bites, chew more slowly and thoroughly and that has also been helpful. She feels that with medications, she tends to feel something has been left in her throat. She also reports that she feels a bit of a sore throat in the left vallecular area and that food/pills and that taking a sip of water helps to clear the pooled material. When asked if she has felt on the verge of choking, she vehemently said yes, She then stated that even her own saliva can make her feel as if she is choking. She stated she still becomes choked on thin liquids; she also reported that she has become choked on the water while taking a shower. Reported Pain Level Pain Score 0: Self Report Assessment ST Clinical Summary BEDSIDE SWALLOW AND VOICE EVALUATION This patient was seen for a Bedside Swallow Evaluation and Voice Evaluation following having issues on a Modified Barium Swallow study at [facility] on 11/24. Results of that Modified Barium Swallow study found risk for aspiration on thin liquids secondary to reduced laryngeal elevation and airway closure, and then significant pooling in the pharynx contributing to a feeling that something is in the throat after swallowing and/or risk for aspiration after the swallow. Today the patient stated that she does cough a lot when eating and drinking but that the use of head flexion, as instructed to use after the MBS indicated it could be helpful, has significantly reduced her need to cough. She also reports coughing on her own saliva. Patient reported that she must take small bites and sips, must chew thoroughly, and she also avoids hard-to- chew foods. Today the patient drank water per cup, having to use both hands to hold the cup and prevent spilling however she independently, consistently used head flexion a
--- NOTE | 2022-12-10 15:01 | PCSTNOTE ---
Patient did not show up for scheduled appointment this date.
--- NOTE | 2022-12-19 14:02 | PCSTNOTE ---
Patient did not show up for scheduled appointment this date.
--- NOTE | 2022-12-24 11:12 | PCSTNOTE ---
Cancelled today/Thursday/rescheduled for Thursday.
--- NOTE | 2022-12-26 13:50 | PCSTNOTE ---
Patient cancelled Sunday 12/24 and rescheduled for Thursday, then just an hour or so before the Thursday appointment called and cancelled stating she has food poisoning. Therapist was notified that she rescheduled that date for another day next week.
--- NOTE | 2022-12-29 12:46 | STOPDC ---
Assessment and note entered by KATHI Rain Evaluation Information Assessment Status Discharge - Pt Not Presen Assessment ST Clinical Summary DISCHARGE SUMMARY This patient was first seen for a Modified Barium Swallow through [facility] Radiology department, then for an initial evaluation 0n 11/28 in order to instruct the patient in an exercise home program for improving the strength of the swallow which was completed at the time of her outpatient evaluation. She then requested structured Speech Therapy one time weekly for four weeks. After the initial evaluation, patient either canceled or rescheduled and then cancelled each session for the next four weeks due to various illnesses. Patient, in fact, called to cancel this past Thursday's appointment and rescheduled it for today however when speaking with the patient today prior to the appointment, she insisted she did not have an appointment today but only on Thursday (a previously scheduled re-evaluation appointment). Due to therapy policy and lack of attendance, discharge is suggested. When speaking with patient today, she stated that she has consistently been using the chin tuck/head flexion to prevent aspiration/strangling/choking sensations and she reports she has been completing her home exercise program. Therapist offered to have patient return for the re-evaluation Thursday, if desired, however patient determined that she did not need any further sessions and declined. Patient stated she will be seeing her new primary care physician and would review exercise program and determine need to initiate Speech Therapy at that time. Patient is being discharged with home exercise program in place, compensatory strategies taught, and goals that concerned instruction achieved. Plan of Care ST Services Indicated No
== END 2022-12-29 13:58 | disposition home or self-care (01) ==
LOC: ANHST 12:44
PROVIDERS: PCP Family Medicine; Visit Provider Family Medicine
DX: R13.10 Dysphagia, unspecified (principal); G20 Parkinson's disease
CPT/HCPCS: 92610; 99199

== ENCOUNTER 2025-05-11 13:22 | Outpatient (CLI) | payer MEDICARE, SELFPAY ==
--- NOTE | ~2025-05-11 | MR_ITS ---
EXAMINATION: MR shoulder RT wo con DATE: 05/11/2025 14:01 INDICATION: Unspecified injury of right shoulder. TECHNIQUE: Magnetic resonance imaging (MRI) of the right shoulder was performed without intravenous contrast. Sequences included axial PD-weighted FS FSE, coronal oblique PD-weighted FS FSE and T2-weighted FS FSE, and sagittal oblique T2-weighted FS FSE and T1-weighted FSE. COMPARISON: Right shoulder radiographs 04/27/2025 FINDINGS: Coracoacromial arch: The acromion undersurface is curved in morphology (type II). There are likely changes of acromioplasty. There is mild acromioclavicular joint osteoarthritis. Moderate subacromial/subdeltoid bursitis. Rotator cuff: There is moderate supraspinatus tendinopathy with shallow bursal sided fraying. There is calcific tendinitis of supraspinatus. There is mild infraspinatus tendinopathy. Teres minor tendon is normal. Subscapularis tendon is normal. There is mild fatty atrophy of the rotator cuff muscle bellies. Biceps tendon and glenoid labrum: Biceps tendon is in bicipital groove. Intra-articular biceps tendon is normal. There is a tear of the posterior superior labrum. Fluid: There is no glenohumeral joint effusion. Bones/cartilage: There is shallow partial-thickness cartilage loss of glenoid and humeral head. IMPRESSION: 1. Moderate rotator cuff tendinopathy with shallow bursal-sided fraying of supraspinatus tendon. Calcific tendinitis of supraspinatus. 2. Mild glenohumeral joint chondrosis. 3. Mild acromioclavicular joint osteoarthritis. 4. Moderate subacromial/subdeltoid bursitis. Reviewed, dictated and finalized at location E. IMPRESSION: 1. Moderate rotator cuff tendinopathy with shallow bursal-sided fraying of supr aspinatus tendon. Calcific tendinitis of supraspinatus. 2. Mild glenohumeral joint chondrosis. 3. Mild acromioclavicular joint osteoarthritis. 4. Moderate subacromial/subdeltoid bursitis.
== END 2025-05-11 13:23 | disposition home or self-care (01) ==
LOC: MICIMG 13:22
PROVIDERS: PCP Internal Medicine; Visit Provider Orthopaedic Surgery
DX: S49.91XA Unspecified injury of right shoulder and upper arm, initial encounter (principal); X58.XXXA Exposure to other specified factors, initial encounter; M19.011 Primary osteoarthritis, right shoulder; M75.51 Bursitis of right shoulder
CPT/HCPCS: 73221